=== PATIENT | female | born 1985 | race Caucasian/White ===

== ENCOUNTER → 2016-12-21 | Outpatient (CLI) | payer OTHER ==
[2016-12-21 22:10] LABS: PROGESTERONE 0.7 NG/ML; THYROID PEROXIDASE ANTIBODY < 28.0 U/ML (<60.0)
[2016-12-21 22:16] LABS: IMMUNOGLOBULIN G 1250 MG/DL (681-1648)
[2016-12-21 22:18] LABS: BASO # 0.1 10^3/uL (0.0-0.2); EOS # 0.2 10^3/uL (0.0-0.50); EOS % 2.2 % (0.0-3.0); IMMATURE GRANULOCYTE % 0.2 % (0-0); LYMPH # 2.9 10^3/uL (1.5-4.5); LYMPH % 35.5 % (24.0-44.0); MEAN CORPUSCULAR HEMOGLOBIN 31.3 pg (27.0-33.0); MEAN CORPUSCULAR HGB CONC 34.3 g/dl (32.0-36.5); MONO # 0.5 10^3/uL (0.0-0.8); MONO % 5.7 % (0.0-5.0); NEUTROPHILS # 4.5 10^3/uL (1.8-7.7); NEUTROPHILS % 55.4 % (36.0-66.0); PLATELET COUNT, AUTOMATED 354 10^3/uL (150-450); WHITE BLOOD COUNT 8.1 10^3/uL (4.0-10.0)
== END ==
LOC: M WUC 18:18
PROVIDERS: ATTEND Nurse Practitioner Pediatrics
DX: M25.50 Pain in unspecified joint (principal); K59.00 Constipation, unspecified

== ENCOUNTER → 2017-01-02 | Outpatient (REF) | payer OTHER | LOC: M LAB REF 16:32 | PROVIDERS: ATTEND Physician Assistant | DX: J02.9 Acute pharyngitis, unspecified (principal); R30.0 Dysuria ==

== ENCOUNTER → 2017-02-25 | Outpatient (CLI) | payer OTHER ==
[2017-02-25 19:10] LABS: FREE T3 3.1 PG/ML (2.2-4.0); FREE T4 0.82 NG/DL (0.76-1.46)
[2017-02-27 11:11] LABS: PROGESTERONE 9.8 NG/ML
[2017-02-27 11:11] LABS: LUTEINIZING HORMONE 9.2 mIU/mL
[2017-02-27 11:12] LABS: FOLLICLE STIMULATING HORMONE 4.2 mIU/mL; THYROID PEROXIDASE ANTIBODY < 28.0 U/ML (<60.0)
[2017-02-27 11:16] LABS: TOTAL 25(OH) VITAMIN D 27.1 NG/ML (30.0-100.0)
[2017-03-02 10:14] LABS: T3 REVERSE 14.9 ng/dL (9.2-24.1)
[2017-03-02 10:14] LABS: DEHYDROEPIANDROSTERONE UNCONJ 287 ng/dL (31-701); INSULIN LEVEL 8.1 uIU/mL (2.6-24.9); TESTOSTERONE FREE (DIRECT) 1.9 pg/mL (0.0-4.2); THRYOGLOBULIN ANTIBODIES (ATA) < 1.0 IU/mL (0.0-0.9); THYROGLOBULIN QUANTITATIVE 5.3 ng/mL (1.5-38.5)
== END ==
LOC: M WUC 09:45
DX: F41.9 Anxiety disorder, unspecified (principal); E55.9 Vitamin D deficiency, unspecified; E03.9 Hypothyroidism, unspecified

== ENCOUNTER → 2017-11-14 | Outpatient (CLI) | payer OTHER ==
[2017-11-14 19:04] LABS: FREE T4 0.86 NG/DL (0.76-1.46); TOTAL 25(OH) VITAMIN D 41.8 NG/ML (30.0-100.0)
[2017-11-14 19:04] LABS: PROGESTERONE 10.9 NG/ML
[2017-11-14 21:48] LABS: FREE T3 2.6 PG/ML (2.2-4.0)
[2017-11-15 08:43] LABS: THYROGLOBULIN ANTIBODY 27.1 U/ML (<60.0)
[2017-11-20 14:37] LABS: DEHYDROEPIANDROSTERONE UNCONJ 135 ng/dL (31-701); ESTROGENS TOTAL 263 pg/mL (.); TESTOSTERONE %FREE+WEAKLY BOUN 10.5 % (3.0-18.0); TESTOSTERONE FREE+WEAKLY BOUND 1.4 ng/dL (0.0-9.5); TESTOSTERONE TOTAL 13 ng/dL (8-48)
[2017-11-20 14:37] LABS: T3 REVERSE 13.3 ng/dL (9.2-24.1)
== END ==
LOC: M WUC 13:11
DX: F41.9 Anxiety disorder, unspecified (principal); F32.81 Premenstrual dysphoric disorder; E55.9 Vitamin D deficiency, unspecified; E03.9 Hypothyroidism, unspecified

== ENCOUNTER → 2018-02-09 | Outpatient (CLI) | payer OTHER ==
--- NOTE | 2018-02-09 08:37 | REP ---
Thyroid sonography: History: Hypothyroidism. Sonographic findings: Thyroid isthmus is normal measuring 0.4 cm in thickness. Right thyroid lobe dimensions are 5.3 x 1.6 x 2.1 cm. Left thyroid lobe measures 5.1 x 1.9 x 1.7 cm. There is a hypoechoic partially cystic nodule in the lower pole of the right lobe measuring 0.7 x 0.4 x 0.6 cm. There are tiny 3 and 4 mm cysts on the left. No other thyroid nodule is seen. There is no evidence of adenopathy. Impression: No significant abnormality. Electronically Signed by Grabiel Nagel MD 02/09/2018 09:26 A
== END ==
LOC: M RAD 07:25
PROVIDERS: ATTEND Physician Assistant
DX: E03.9 Hypothyroidism, unspecified (principal)

== ENCOUNTER → 2019-03-28 | Outpatient (REF) | payer OTHER | LOC: M LAB REF 10:53 | PROVIDERS: ATTEND Nurse Practitioner Family | DX: J02.9 Acute pharyngitis, unspecified (principal) ==

== ENCOUNTER → 2020-07-12 | Outpatient (CLI) | payer OTHER ==
[2020-07-12 10:54] LABS: BASO % 0.6 % (0.0-1.0); EOS # 0.1 10^3/uL (0.0-0.5); EOS % 1.9 % (0.0-3.0); HEMATOCRIT 39.7 % (36.0-47.0); LYMPH # 1.7 10^3/uL (1.5-5.0); LYMPH % 24.8 % (24.0-44.0); MEAN CORPUSCULAR HEMOGLOBIN 32.5 pg (27.0-33.0); MEAN CORPUSCULAR HGB CONC 35.3 g/dl (32.0-36.5); MEAN CORPUSCULAR VOLUME 92.1 fl (80.0-96.0); MONO # 0.5 10^3/uL (0.0-0.8); MONO % 7.1 % (2.0-8.0); NEUTROPHILS # 4.5 10^3/uL (1.5-8.5); PLATELET COUNT, AUTOMATED 327 10^3/uL (150-450); RED BLOOD COUNT 4.31 10^6/uL (4.00-5.40); WHITE BLOOD COUNT 6.9 10^3/uL (4.0-10.0)
[2020-07-12 11:33] LABS: ALBUMIN 3.6 GM/DL (3.2-5.2); ALT/SGPT 16 U/L (12-78); BILIRUBIN,TOTAL 0.4 MG/DL (0.2-1.0); BLOOD UREA NITROGEN 11 MG/DL (7-18); CALCIUM LEVEL 8.8 MG/DL (8.5-10.1); CARBON DIOXIDE LEVEL 28 MEQ/L (21-32); CHLORIDE LEVEL 106 MEQ/L (98-107); CREATININE FOR GFR 0.66 MG/DL (0.55-1.30); FREE T4 0.77 NG/DL (0.76-1.46); GLOMERULAR FILTRATION RATE > 60.0 (>60); GLUCOSE, FASTING 89 MG/DL (70-100); POTASSIUM SERUM 4.2 MEQ/L (3.5-5.1); SODIUM LEVEL 139 MEQ/L (136-145); THYROID STIMULATING HORMONE 0.881 uIU/ML (0.358-3.740)
[2020-07-13 11:48] LABS: THYROGLOBULIN ANTIBODY < 15.0 U/ML (<60.0); THYROID PEROXIDASE ANTIBODY 39.2 U/ML (<60.0)
== END ==
LOC: M LAB 10:24
PROVIDERS: ATTEND Physician Assistant
DX: Z00.00 Encounter for general adult medical examination without abnormal findings (principal); I73.00 Raynaud's syndrome without gangrene

== ENCOUNTER → 2021-12-17 | Outpatient (CLI) | payer OTHER ==
[2021-12-17 18:32] LABS: ALBUMIN 3.8 GM/DL (3.2-5.2); ALT/SGPT 15 U/L (12-78); BILIRUBIN,TOTAL 0.4 MG/DL (0.2-1.0); BLOOD UREA NITROGEN 10 MG/DL (7-18); CALCIUM LEVEL 9.2 MG/DL (8.5-10.1); CARBON DIOXIDE LEVEL 28 MEQ/L (21-32); CHLORIDE LEVEL 104 MEQ/L (98-107); CREATININE FOR GFR 0.77 MG/DL (0.55-1.30); FREE T4 0.92 NG/DL (0.76-1.46); GLOMERULAR FILTRATION RATE > 60.0 (>60); GLUCOSE, FASTING 90 MG/DL (70-100); RHEUMATOID FACTOR QUANT < 10.0 IU/ML (<15.0); SODIUM LEVEL 137 MEQ/L (136-145); THYROID STIMULATING HORMONE 0.796 uIU/ML (0.358-3.740); TOTAL PROTEIN 7.1 GM/DL (6.4-8.2)
[2021-12-20 09:38] LABS: THYROID PEROXIDASE ANTIBODY 31.9 U/ML (<60.0)
[2021-12-20 09:39] LABS: ESTRADIOL 65.2 PG/ML; LUTEINIZING HORMONE 5.9 mIU/mL
[2021-12-20 09:40] LABS: FOLLICLE STIMULATING HORMONE 4.7 mIU/mL
== END ==
LOC: M WUC 12:53
PROVIDERS: ATTEND Family Medicine
DX: M25.50 Pain in unspecified joint (principal); I73.00 Raynaud's syndrome without gangrene; O92.6 Galactorrhea; N91.1 Secondary amenorrhea

== ENCOUNTER → 2021-12-29 | Outpatient (CLI) | payer OTHER | LOC: M WHC 10:13 | PROVIDERS: ATTEND Family Medicine | DX: N64.4 Mastodynia (principal) | CPT/HCPCS: 77066; G0279 ==

== ENCOUNTER → 2022-03-28 | Outpatient (CLI) | payer OTHER | LOC: M SLEEP HO 11:52 | PROVIDERS: ATTEND Family Medicine | DX: R06.83 Snoring (principal); G47.10 Hypersomnia, unspecified ==

== ENCOUNTER → 2022-03-28 | Outpatient (CLI) | payer OTHER | LOC: M WUC 09:22 | PROVIDERS: ATTEND Family Medicine | DX: M25.551 Pain in right hip (principal) ==

== ENCOUNTER → 2022-04-30 | Outpatient (CLI) | payer OTHER | LOC: M RAD 08:31 | PROVIDERS: ATTEND Nurse Practitioner Adult Health | DX: M25.551 Pain in right hip (principal) ==

== ENCOUNTER → 2022-05-10 | Outpatient (CLI) | payer OTHER ==
[2022-05-10 18:55] LABS: URIC ACID 3.1 MG/DL (3.1-7.8)
[2022-05-10 18:57] LABS: C REACTIVE PROTEIN QUANTITATIV < 0.40 MG/DL (<1.0)
[2022-05-10 18:58] LABS: RHEUMATOID FACTOR QUANT 6.9 IU/ML (<14)
== END ==
LOC: M LAB 17:00
PROVIDERS: ATTEND Nurse Practitioner Adult Health
DX: R76.0 Raised antibody titer (principal)

== ENCOUNTER → 2022-09-19 | Outpatient (CLI) | payer OTHER ==
[2022-09-19 17:23] LABS: BASO # 0.1 10^3/uL (0.0-0.2); EOS # 0.1 10^3/uL (0.0-0.5); EOS % 0.8 % (0.0-3.0); HEMATOCRIT 42.2 % (36.0-47.0); HEMOGLOBIN 13.9 g/dl (12.0-15.5); LYMPH % 27.9 % (24.0-44.0); MEAN CORPUSCULAR HEMOGLOBIN 30.9 pg (27.0-33.0); MEAN CORPUSCULAR HGB CONC 32.9 g/dl (32.0-36.5); MEAN CORPUSCULAR VOLUME 93.8 fl (80.0-96.0); MONO # 0.4 10^3/uL (0.0-0.8); NEUTROPHILS # 4.6 10^3/uL (1.5-8.5); NEUTROPHILS % 63.7 % (36.0-66.0); PLATELET COUNT, AUTOMATED 365 10^3/uL (150-450); WHITE BLOOD COUNT 7.2 10^3/uL (4.0-10.0)
[2022-09-19 17:46] LABS: THYROID STIMULATING HORMONE 1.135 uIU/ML (0.55-4.78); TOTAL IRON BINDING CAPACITY 302 UG/DL (250-425)
[2022-09-19 17:47] LABS: ALBUMIN 3.8 G/DL (3.2-5.2); ALKALINE PHOSPHATASE 71 U/L (46-116); ALT/SGPT 13 U/L (7.0-40); AST/SGOT 8 U/L (<34); BILIRUBIN,TOTAL 0.4 MG/DL (0.3-1.2); BLOOD UREA NITROGEN 8 MG/DL (9-23); CALCIUM LEVEL 9.1 MG/DL (8.5-10.1); CARBON DIOXIDE LEVEL 26 MMOL/L (20-31); CHLORIDE LEVEL 107 MMOL/L (98-107); CREATININE FOR GFR 0.67 MG/DL (0.55-1.30); FREE T4 0.99 NG/DL (0.89-1.76); GLOMERULAR FILTRATION RATE > 60.0 (>60); GLUCOSE, FASTING 107 MG/DL (60-100); IRON (FE) 75 UG/DL (50-170); PERCENT SATURATION 24.8 % (13.2-45.0); POTASSIUM SERUM 3.8 MMOL/L (3.5-5.1); SODIUM LEVEL 142 MMOL/L (136-145); TOTAL PROTEIN 6.7 G/DL (5.7-8.2)
[2022-09-19 17:49] LABS: FOLATE 16.84 NG/ML (>5.4); VITAMIN B12 LEVEL 1439 PG/ML (211-911)
[2022-09-21 12:11] LABS: ANTINUCLEAR ANTIBODIES DIRECT Negative (Negative)
== END ==
LOC: M WUC 11:50
PROVIDERS: ATTEND Nurse Practitioner Adult Health
DX: G62.9 Polyneuropathy, unspecified (principal)

== ENCOUNTER → 2022-09-21 | Outpatient (REF) | payer OTHER ==
[2022-09-23 07:12] LABS: HSV TYPE II IgG SPECIFIC <0.91 index (0.00-0.90)
== END ==
LOC: M LAB REF 11:50
PROVIDERS: ATTEND Nurse Practitioner Adult Health
DX: K12.0 Recurrent oral aphthae (principal)

== ENCOUNTER → 2023-05-05 | Outpatient (CLI) | payer OTHER ==
[~2023-05-05] MED LIST: ISOVUE-300 61% 100ML VIAL As Ordered ONE; LIDOCAINE 1% MDV 20ML VIAL As Ordered ONE; TRIAMCINOLONE ACETONIDE SUSP 40MG/ML 1ML VIAL As Ordered ONE
== END ==
LOC: M RAD 13:37
PROVIDERS: ATTEND Orthopaedic Surgery
DX: M25.551 Pain in right hip (principal)
CPT/HCPCS: 20605; 77002; J3301; Q9967

== ENCOUNTER → 2023-09-22 | Outpatient (REF) | payer OTHER | LOC: M LAB REF 19:20 | PROVIDERS: ATTEND Physician Assistant | DX: J02.9 Acute pharyngitis, unspecified (principal) ==

== ENCOUNTER → 2024-10-05 | Outpatient (CLI) | payer OTHER ==
[2024-10-05 12:00] LABS: BASO # 0.1 10^3/uL (0.0-0.2); BASO % 1.3 % (0.0-1.0); EOS # 0.1 10^3/uL (0.0-0.5); EOS % 1.8 % (0.0-3.0); LYMPH # 1.6 10^3/uL (1.5-5.0); LYMPH % 35.6 % (24.0-44.0); MONO # 0.4 10^3/uL (0.0-0.8); MONO % 8.0 % (2.0-8.0); NEUTROPHILS # 2.4 10^3/uL (1.5-8.5); NEUTROPHILS % 53.1 % (36.0-66.0); PLATELET COUNT, AUTOMATED 301 10^3/uL (150-450)
[2024-10-05 12:59] LABS: CALCIUM LEVEL 8.9 MG/DL (8.5-10.1); CARBON DIOXIDE LEVEL 29 MMOL/L (20-31); CHLORIDE LEVEL 107 MMOL/L (98-107); CREATININE FOR GFR 0.68 MG/DL (0.55-1.30); GLOMERULAR FILTRATION RATE > 90.0 (>60); IRON (FE) 46 UG/DL (50-170); PERCENT SATURATION 17.5 % (13.2-45.0); POTASSIUM SERUM 4.0 MMOL/L (3.5-5.1); SODIUM LEVEL 144 MMOL/L (136-145)
[2024-10-05 13:03] LABS: ESTRADIOL 88.2 PG/ML; LUTEINIZING HORMONE 3.5 mIU/ML
[2024-10-05 13:04] LABS: TOTAL 25(OH) VITAMIN D 46.8 NG/ML (20.0-100.0)
[2024-10-05 13:06] LABS: FREE T4 1.18 NG/DL (0.89-1.76)
[2024-10-05 13:07] LABS: VITAMIN B12 LEVEL 493 PG/ML (211-911)
[2024-10-11 16:33] LABS: ESTROGENS TOTAL 209.0 pg/mL
[2024-10-11 16:47] LABS: TESTOSTERONE FREE (DIRECT) 1.1 pg/mL (0.1-6.4); TESTOSTERONE TOTAL FOR T&D 14.0 ng/dL (2-45)
== END ==
LOC: M LAB 09:51
PROVIDERS: ATTEND Nurse Practitioner Adult Health
DX: N95.9 Unspecified menopausal and perimenopausal disorder (principal); R53.83 Other fatigue

== ENCOUNTER → 2025-01-27 | Outpatient (REF) | payer OTHER | LOC: M LAB REF 11:53 | DX: R30.0 Dysuria (principal) ==